=== PATIENT | male | born 1975 | race Two or more races ===

== ENCOUNTER 2019-03-16 10:11 | Day surgery (SDC) | payer BC ==
[~2019-03-16] VITALS: Ht 180.3 cm; Wt 74.4 kg
[2019-03-16] VITALS (13 sets, daily range): BP systolic 105–199; BP diastolic 54–89
[~2019-03-16 10:11] MED LIST: TERBINAFINE HC250 MG PO; TRUVADA 200 MG1 EAC1 ORAL
--- NOTE | 2019-03-16 10:49 | Pre-Procedure Note/Attestation ---
Pre-Procedure Note/Attestation Complete Prior to Procedure Planned Procedure: bilateral Procedure Narrative: laparoscopic right inguinal hernia repair with mesh, possible left Indications for Procedure Pre-Operative Diagnosis: right inguinal hernia, possible left Attestation I attest that I discussed the nature of the procedure; its benefits; risks and complications; and alternatives (and the risks and benefits of such alternatives ), prior to the procedure, with the patient (or the patient's legal retail sales representative). I attest that, if there was a reasonable possibility of needing a blood transfusion, the patient (or the patient's legal retail sales representative) was given the [facility] standardized written summary, pursuant to the Michael Wendi Blood Safety Act ([place] Health and Safety Code # 1645, as amended). I attest that I re-evaluated the patient just prior to the surgery and that there has been no change in the patient's H&P, except as documented below: Kyle Austin Mar 16, 2019 10:49
[2019-03-16] MEDS ORDERED: Bacitracin 50000 Units Vial ONE (11:53)
[2019-03-16] MEDS ORDERED: Bupivacaine w/Epi 0.5% 30ml Vial INJ ONE (11:53)
[2019-03-16] MEDS ORDERED: Midazolam 2mg/2ml Inj ONE (11:59)
[2019-03-16] MEDS ORDERED: Propofol 200mg/20ml IV ONE (11:59)
[2019-03-16] MEDS ORDERED: fentaNYL 100 mcg/2 mL ONE ×2 (11:59→12:34)
[2019-03-16] MEDS ORDERED: Lidocaine 1% MPF 10mg/ml 5ml ONE ×2 (11:59→12:04)
[2019-03-16] MEDS ORDERED: LR 1000ml ONE (12:00)
[2019-03-16] MEDS ORDERED: Sterile Water Irrig 1000ml IRRIG ONE (12:00)
[2019-03-16] MEDS ORDERED: ceFAZolin sod 2 GM in D5W 110 ML IV SCH (12:15)
[2019-03-16] MEDS ORDERED: NS Irrig 1000ml IRRIG ONE ×2 (12:23→12:45)
[2019-03-16] MEDS ORDERED: Morphine Sulfate 10mg/ml Inj ONE (12:30)
[2019-03-16] MEDS ORDERED: Dexamethasone 4mg/ml vial ONE (12:32)
[2019-03-16] MEDS ORDERED: Rocuronium Bromide 50mg/5ml Inj IV ONE (13:09)
--- NOTE | 2019-03-16 13:21 | Anethesia Preoperative Eval ---
Anesthesia Pre-op PMH/ROS General Date of Evaluation: Mar 16, 2019 Time of Evaluation: 11:29 Anesthesiologist: Lacy Aguilar CRNA ASA Score: ASA 2 Mallampati Score Class I : Soft palate, uvula, fauces, pillars visible Class II: Soft palate, uvula, fauces visible Class III: Soft palate, base of uvula visible Class IV: Only hard plate visible Mallampati Classification: Class II Surgeon: Norman Diagnosis: RIGHT inguinal hernia Surgical Procedure: laparoscopic RIGHT inguinal hernia repair, evaluation of LEFT Anesthesia History: none Family History: no anesthesia problems Allergies: Coded Allergies: No Known Allergies (Unverified , 03/15/19) Medications: see eMAR Patient NPO?: Yes NPO Date: Mar 16, 2019 NPO Time: 00:00 Past Medical History Cardiovascular: Reports: other; Denies: HTN, CAD, [place], valve dz, arrhythmia Pulmonary: Denies: asthma, COPD, AMANDA, other Gastrointestinal/Genitourinary: Reports: other - right inguinal hernia; Denies: GERD, CRI, ESRD Neurologic/Psychiatric: Denies: dementia, CVA, depression/anxiety, TIA, other Endocrine: Denies: DM, hypothyroidism, steroids, other HEENT: Denies: cataract (L), cataract (R), glaucoma, ORUTSARARMIUT (L), ORUTSARARMIUT (R), other Hematology/Immune: Denies: anemia, DVT, bleeding disorder, other Musculoskeletal/Integumentary: Denies: OA, RA, DJD, DDD, edema, other PMH Narrative: as noted above PSxH Narrative: umbilical hernia repair Anesthesia Pre-op Phys. Exam Physician Exam Last Vital Signs Date Time Temp Pulse Resp B/P (MAP) Pulse Ox O2 Delivery O2 Flow Rate FiO2 03/16/19 10:54 97.7 61 18 124/89 99 Room Air Constitutional: NAD Neurologic: other - alert & oriented Cardiovascular: RRR Respiratory: CTA Gastrointestinal: S/NT/ND Airway Exam Mallampati Score: Class II MO: full Neck: FROM, heavy gaytan TMD: > 3 FB ROM: full Teeth: intact Dentures: no upper, no lower Anesthesia Pre-op A/P Labs reviewed, see chart Risk Assessment & Plan Assessment: ASA 2, ok to proceed Plan: GETA Status Change Before Surgery: No Pre-Antibiotics Drug: Lacy Perez CRNA Mar 16, 2019 13:21
[2019-03-16] MEDS ORDERED: Acetaminophen (Non formulary) 100 ML IV SCH (13:30)
--- NOTE | 2019-03-16 13:41 | Immediate Post-Op Evaluation ---
Immediate Post-Op Evalulation Immediate Post-Op Evalulation Procedure: laparoscopic (B) inguinal hernia repair with mesh Date of Evaluation: Mar 16, 2019 Time of Evaluation: 14:10 IV Fluids: LR 1100 ml Estimated Blood Loss: 10 ml Blood Pressure Systolic: 134 Blood Pressure Diastolic: 62 Pulse Rate: 54 Respiratory Rate: 12 O2 Sat by Pulse Oximetry: 100 Temperature (Fahrenheit): 97.0 Pain Score (1-10): 4 Nausea: No Vomiting: No Complications none Patient Status: awake, reacts, patent, extubated Hydration Status: adequate Drug: cefazolin 2 gm IV Given Within 1 Hr of Incision: Yes Time Given: 12:20 Lacy Aguilar CRNA Mar 16, 2019 13:41
[2019-03-16] MEDS ORDERED: Neostigmine 1mg/ml 10ml Inj ONE (13:48)
[2019-03-16] MEDS ORDERED: Glycopyrrolate 0.2mg/ml 1ml Vial ONE (13:48)
[2019-03-16] MEDS ORDERED: Ketorolac 30mg Inj ONE (14:03)
[2019-03-16] MEDS ORDERED: Succinylcholine 20mg/ml 10ml vial ONE (14:20)
--- NOTE | 2019-03-16 14:25 | 48 Hour Post Anesthesia Eval ---
Post Anesthesia Evaluation Procedure: laparoscopic (B) inguinal hernia repair with mesh Date of Evaluation: Mar 16, 2019 Time of Evaluation: 14:24 Blood Pressure Systolic: 129 0: 74 Pulse Rate: 75 Respiratory Rate: 17 Temperature (Fahrenheit): 97.1 O2 Sat by Pulse Oximetry: 100 Airway: patent Nausea: No Vomiting: No Pain Intensity: 2 Hydration Status: adequate Cardiopulmonary Status: stable Mental Status/LOC: patient returned to baseline Follow-up Care/Observations: per gen surgery Post-Anesthesia Complications: none Follow-up care needed: N/A Lacy Aguilar CRNA Mar 16, 2019 14:25
[2019-03-16] MEDS: Hydromorphone 0.5mg/0.5ml inj IVP PRN ×2 (14:29→14:56)
--- NOTE | 2019-03-16 15:15 | Brief Operative Note ---
Immediate Post Operative Note Operative Note Pre-op Diagnosis: right inguinal hernia, possible left Procedure: lap bilateral inguinal hernia repair with mesh Post-op Diagnosis: bilateral indirect inguinal hernia Surgeon: ellie Anesthesiologist: amrit Anesthesia: general, local Specimen: none Complications: none Condition: stable Fluids: see records Estimated Blood Loss: minimal Drains: none Implant(s) used?: Yes Kyle Austin Mar 16, 2019 15:15
--- NOTE | 2019-03-16 20:45 | Operative Note - Dictated ---
DATE OF OPERATION: 03/16/2019 PREOPERATIVE DIAGNOSIS: Right inguinal hernia, possible left. POSTOPERATIVE DIAGNOSIS: Bilateral inguinal hernias, right indirect inguinal hernia large and left indirect inguinal hernia [id number]. OPERATION PERFORMED: Laparoscopic bilateral inguinal hernia repair with mesh, right and left. ATTENDING SURGEON: Kyle Austin M.D. BILINGUAL KINDERGARTEN TEACHER: None. ANESTHESIOLOGIST: Lacy Aguilar CRNA ANESTHESIA: General MATERIALS HANDLER plus local. ESTIMATED BLOOD LOSS: Minimal. IV FLUIDS: Please see anesthesia records. COMPLICATIONS: None. DRAINS: None. COUNTS: Sponge and needle count correct x2. ANTIBIOTICS: A 2 g Ancef given 1 hour prior to cut time WOUND CLASSIFICATION: Class I. IMPLANTS: 1. Bard 3DMax mesh right-sided large lot number [id number], reference [id number], expiration February 01, 2023. 2. Bard 3DMax mesh left lot number [id number], expiration July 04, 2023, reference [id number] large. INDICATIONS FOR PROCEDURE: This is a 44-year-old male, who was referred to me by his primary care physician for evaluation of a symptomatic right inguinal hernia. The patient has had it for some time and it is worsening. Recently, he has felt some discomfort on the left side as well. He believes it was caused during extensive workups when he first noted it. History of umbilical hernia repair as a child. Surgery was indicated and recommended. We discussed the patient's surgical options including open laparoscopic robotic mesh placement and no mesh placement prior and possibility of unilateral versus bilateral repair if necessary. The patient expressed understanding and consented for surgery. Planned surgery is laparoscopic right inguinal hernia repair, possible left with mesh. Consent was obtained. OPERATIVE NOTE: The patient was taken to the operating room and placed on the operating table in supine position with bilateral arms tucked. All bony prominences were well padded. SCDs placed. No Licona catheter inserted given the patient voided prior to entering the operating room. General anesthesia was induced and the patient was intubated. The abdomen was clipped, prepped, and draped in standard surgical fashion. The prior supraumbilical incision for the patient's childhood hernia repair was utilized after local anesthetic was infiltrated. Incision was made using a fresh #11 scalpel and carried down the fascia was elevated and incised. Entry into the fascia was obtained using the open Radha technique without complication. A 12 mm Radha trocar was inserted and the abdomen was insufflated to 12 to 15 mmHg. The patient tolerated the insufflation well. Laparoscope was inserted and the abdomen was inspected. No injury from initial trocar placement noted. In the right upper quadrant, the liver was otherwise healthy and stable with some blunted edges. In the left upper quadrant, no abnormalities were noted except for some adhesions to the left upper quadrant with omentum to the anterior abdominal wall. In the right lower quadrant, there was a large sized inguinal hernia identified indirect. On the left side, there was a small indirect inguinal hernia identified. Pelvis nothing was abnormal. The portion of the bowel that could be identified was healthy and stable. At this time, decision was made to proceed with laparoscopic right and left inguinal hernia repair with mesh. Secondary trocars were placed under direct visualization beginning with a 5 mm right mid abdominal, followed by 5 mm left mid abdominal trocar site. We first began with the right side. Laparoscopic scissors were used and the peritoneal lining was incised 2 cm superior to the level of the hernia. Incision was carried from the medial umbilical ligament to towards the anterior superior iliac spine. Peritoneal flap was created of the peritoneal lining and the hernia was reduced. The cord structures were identified and carefully protected throughout the procedure. Medial dissection was carried to the pubic tubercle and David's ligament. Bladder dissection was ensured not to carry too far lateral just enough for appropriate mesh placement. Once appropriate hernia reduction was identified, a lipoma of the cord was noted on the right side, which was reduced. Small size lipoma of the cord otherwise uneventful. Attention was then turned to the left side and in a similar fashion, the left-sided hernia was reduced and peritoneal flap was created without complication. The cord structures were again identified and preserved. Once this was complete, a Bard right and left-sided laparoscopic 3D mesh large size were brought into the operative field. Initially, the right side was entered into the abdomen and placed appropriately. Good positioning was noted with adequate repair for coverage of all hernia defects. The mesh was tacked to David's ligament using fixed ProTack absorbable tacks. Following this, in the similar fashion, the left side was fashioned with appropriate left-sided mesh. It was also tacked to David's ligament using SorbaFix absorbable tacker. Once this was complete, satisfactory bilateral inguinal hernia repair with mesh was identified without complication, good mesh placement, and proper technique. The peritoneal lining was then reapproximated using SorbaFix tacks, ensuring not to go too lateral and not to damage the epigastric. The patient tolerated the procedure well. Satisfactory repair was identified. Secondary trocars removed under direct visualization followed by desufflation of the abdomen and removal of the umbilical trocar site. The umbilical trocar site fascia was reapproximated using #0 [id number] Vicryl suture followed by reapproximation of skin incisions after they were cleansed using 4-0 Monocryl subcuticular interrupted sutures. Local anesthetic was infiltrated throughout the procedure to the patient's comfort. At the end of the procedure, both testicles were identified to be in the scrotal sac without complication. The patient tolerated the procedure well, was extubated, and sent to the postanesthetic care unit in stable condition. Kyle Austin M.D. DR: NEHEMIAH JOB#: [id number] CC: [email or web address]
[2019-03-16] MEDS ORDERED: Tylenol #3 tab (300mg/30mg) ORAL PRN (22:01)
[2019-03-16] MEDS ORDERED: D5 1/2NS 1,000 ML IV SCH (22:01)
[2019-03-16] MEDS ORDERED: HYDROcodone/Acetamin 5/325 tab ORAL PRN (22:01)
[2019-03-16] MEDS ORDERED: HYDROmorphone 1mg/ml Carpuject SUBQ PRN (22:01)
== END 2019-03-16 17:50 | disposition home or self-care (01) ==
LOC: SUR 10:11
DX: K40.20 Bilateral inguinal hernia, without obstruction or gangrene, not specified as recurrent (principal); E78.5 Hyperlipidemia, unspecified; Z79.899 Other long term (current) drug therapy
CPT/HCPCS: 49650; C1781; J0330; J0690; J1100; J1170; J1885; J2250; J2270; J2405; J2704; J2710; J3010; 94003; 94150